=== PATIENT | female | born 1995 | race Asian ===

== ENCOUNTER 2016-12-30 02:03 | Emergency (ER) | payer MEDICAID ==
[2016-12-30 02:09] VITALS: RESP 16
--- NOTE | 2016-12-30 02:48 | EDPHY ---
H & P Stated Complaint: Yeast Infection Time Seen by Provider: 12/30/16 02:29 HPI/ROS: Chief complaint: Burning with urination HPI: Patient presenting with 2-3 days of worsening pelvic discomfort with urinary frequency and burning with urination. Patient is also having some scant amount of whitish vaginal discharge and been having some increasing itching. She thought that she might be developing a vaginal yeast infection. Denies having had infection the past. Has not had a sexually transmitted disease in the past. Last menstrual. Was about 6 weeks ago but she was on Depo. Denies any back pain. No fevers or chills. No nausea or vomiting. No abdominal pain. ROS: 10 point Review of Systems is negative except as noted in the HPI. Past medical history: None Medications: None Allergies: No known drug allergies Physical exam: Gen: Awake, Alert, No Distress Abd: Soft, non-tender, no guarding Back: no CVA tenderness, no midline tenderness Ext: no edema, non-tender Skin: no rash Neuro: CN II-XII intact, Sensation grossly intact, Strength 5/5 in bilateral upper and lower extremities - Personal History Current Tetanus/Diphtheria Vaccine: Yes Current Tetanus Diphtheria and Acellular Pertussis (TDAP): Yes - Medical/Surgical History Hx Asthma: No Hx Chronic Respiratory Disease: No Hx Diabetes: No Hx Cardiac Disease: No Hx Renal Disease: No Hx Cirrhosis: No Hx Alcoholism: No Hx HIV/AIDS: No Hx Splenectomy or Spleen Trauma: No Other PMH: DENIES - Social History Smoking Status: Never smoked Constitutional: Initial Vital Signs Temperature (C) 36.3 C 12/30/16 02:05 Heart Rate 69 12/30/16 02:05 Respiratory Rate 16 12/30/16 02:05 Blood Pressure 113/70 12/30/16 02:05 O2 Sat (%) 97 12/30/16 02:05 O2 Delivery Mode Room Air Allergies/Adverse Reactions: No Known Allergies Allergy (Unverified 04/23/16 15:34) Home Medications: Medication Instructions Recorded Control 04/23/16 Nitrofurantoin Monohyd/M-Cryst 100 mg PO BID #10 capsule 12/30/16 [Macrobid 100 mg Capsule] Medical Decision Making - Data Points Laboratory Results: 12/30/16 12/30/16 03:01 03:01 Urine Color YELLOW Urine Appearance CLEAR Urine pH 5.0 (5.0-7.5) Ur Specific [place] 1.010 (1.002-1.030) Urine Protein NEGATIVE (NEGATIVE) Urine Ketones 1+ H (NEGATIVE) Urine Blood NEGATIVE (NEGATIVE) Urine Nitrate NEGATIVE (NEGATIVE) Urine Bilirubin NEGATIVE (NEGATIVE) Urine Urobilinogen NEGATIVE EU EU (0.2-1.0) Ur Leukocyte Esterase 1+ H (NEGATIVE) Urine RBC 3-5 /hpf H /hpf (0-3) Urine WBC 5-10 /hpf H /hpf (0-3) Ur Epithelial Cells TRACE /lpf /lpf (NONE-1+) Urine Bacteria TRACE /hpf H /hpf (NONE SEEN) Urine Mucus TRACE /lpf /lpf (NONE-1+) Urine Glucose NEGATIVE (NEGATIVE) Urine Test NEGATIVE Departure - Departure Disposition: Home, Routine, Self-Care Clinical Impression: Urinary tract infection Condition: Good Instructions: Urinary Tract Infection in Women (ED) Additional Instructions: Follow up with primary care physician in 3-4 days if symptoms are not improving. Referrals: NONE *PRIMARY CARE P,. [Unknown] - As per Instructions Prescriptions: Nitrofurantoin Monohyd/M-Cryst [Macrobid 100 mg Capsule] 100 mg PO BID #10 capsule
[2016-12-30 03:09] LABS: COLOR YELLOW; LEUKOCYTE ESTERASE,URINE 1+ (NEGATIVE); NITRITE,URINE NEGATIVE (NEGATIVE)
[2016-12-30 03:13] LABS: BACTERIA TRACE /hpf (NONE SEEN); MUCUS TRACE /lpf (NONE-1+)
[2016-12-30] MEDS ORDERED: FLUCONAZOLE 150 MG TAB PO ONE (03:33)
[2016-12-30] MEDS ORDERED: NITROFURANTOIN 100MG PREPACK#2 BTL TAKEHOME ONE (03:33)
[2016-12-30 04:13] VITALS: BP 112/65; PULSE 71; TEMP 97.9; O2SAT 96
== END 2016-12-30 04:16 | disposition home or self-care (01) ==
DX: N39.0 Urinary tract infection, site not specified (principal); B96.89 Other specified bacterial agents as the cause of diseases classified elsewhere

== ENCOUNTER 2017-04-17 20:18 | Emergency (ER) | payer MEDICAID ==
[2017-04-17 20:40] VITALS: O2SAT 97
[2017-04-17 20:56] LABS: COLOR YELLOW; LEUKOCYTE ESTERASE,URINE NEGATIVE (NEGATIVE); NITRITE,URINE NEGATIVE (NEGATIVE)
[2017-04-17 21:01] LABS: BACTERIA TRACE /hpf (NONE SEEN); MUCUS 1+ /lpf (NONE-1+); RBC,URINE 0-1 /hpf (0-3); WBC,URINE 0-1 /hpf (0-3)
--- NOTE | 2017-04-17 21:40 | EDPHY ---
H & P Time Seen by Provider: 04/17/17 20:39 HPI/ROS: 21-year-old female presents complaining of frequent urination with burning upon urination. She is concerned that she may have a vaginal yeast infection because of the burning however she has had no vaginal discharge. She was recently treated with ciprofloxacin for what appears to have been a urinary tract infection however I do not have the results of the urinalysis. She was also treated with fluconazole on day 1 and day and states there has been no change in her symptoms. No fevers no chills no nausea vomiting no abdominal pain no flank pain no back pain No vaginal discharge Review of systems As per HPI General no fever no chills no weakness HEENT no eye pain no eye discharge. No eye redness, no sore throat Respiratory no cough, no shortness of breath Cardiac no chest pain, no peripheral edema GI no abdominal pain, no diarrhea, no constipation, no nausea, no vomiting no flank pain, no hematuria, positive dysuria Musculoskeletal no myalgias, no joint pain Heme no easy bruising, no easy bleeding Endo no polyuria, no polydipsia Skin no rashes, no pruritus Neuro no syncope, no dizziness, no headaches Psych is no suicidal ideation, no homicidal ideation Past Medical/Surgical History: Urinary tract infection Social History: Denies excessive alcohol or drug use Smoking Status: Never smoked Physical Exam: 21 year old female Alert and oriented in no acute distress nontoxic appearance, afebrile Atraumatic normocephalic Neck no JVD Lungs clear to auscultation, no respiratory distress Heart regular rate and rhythm Extremities no cyanosis clubbing edema External genitalia normal, no lesions No erythema no discharge, no excoriation, no ulceration Constitutional: Initial Vital Signs Temperature (C) 37.3 C 04/17/17 20:36 Heart Rate 85 04/17/17 20:36 Blood Pressure 97/62 L 04/17/17 20:36 O2 Sat (%) 97 04/17/17 20:36 O2 Delivery Mode Room Air Allergies/Adverse Reactions: No Known Allergies Allergy (Verified 04/17/17 20:42) Home Medications: Medication Instructions Recorded Control 04/23/16 Cipro 04/17/17 Nitrofurantoin Macrobid [Macrobid] 100 mg PO BID #14 cap 04/17/17 Phenazopyridine HCl 200 mg PO TID #6 tab 04/17/17 [Phenazopyridine] Quetaharveyjean paul Yarelis 04/17/17 Medical Decision Making Procedures: Patient seen and evaluated for frequent burning urination Exam unremarkable Patient has recently been treated with both ciprofloxacin and fluconazole Urinalysis not definitive Urine culture ordered Impression Dysuria possible UTI Plan Macrobid, phenazopyridine Culture results pending - Data Points Medications Given: Discontinued Medications Phenazopyridine HCl (Pyridium) 200 mg PO EDNOW ONE Stop: 04/17/17 21:45 Last Admin: 04/17/17 21:49 Dose: 200 mg Departure - Departure Disposition: Home, Routine, Self-Care Clinical Impression: Urinary tract infection Condition: Good Instructions: Urinary Tract Infection in Women (ED) Referrals: NONE *PRIMARY CARE P,. [Primary Care Provider] - As per Instructions Prescriptions: Nitrofurantoin Macrobid [Macrobid] 100 mg PO BID #14 cap Phenazopyridine HCl [Phenazopyridine] 200 mg PO TID #6 tab
[2017-04-17] MEDS ORDERED: PHENAZOPYRIDINE HCL 200 MG TAB PO ONE (21:44)
[2017-04-17 21:53] VITALS: BP 116/62; PULSE 68; RESP 16; TEMP 98.1
== END 2017-04-17 21:52 | disposition home or self-care (01) ==
LOC: CED 20:18
DX: N39.0 Urinary tract infection, site not specified (principal); B96.89 Other specified bacterial agents as the cause of diseases classified elsewhere
CPT/HCPCS: 81003-PO; 81015-PO